=== PATIENT | female | born 1965 | race Caucasian/White ===

== ENCOUNTER 2017-04-23 12:25 | Emergency (ER) | payer MEDICAID ==
[~2017-04-23] VITALS: Ht 154.9 cm; Wt 59.0 kg
[~2017-04-23 12:25] MED LIST: ALBU6.7H INH; ALPR-339 PO; CARI350T PO; LEVO112T7 PO; LIP40 PO; OMEP40CA34 PO; TIOT18CA3 INH
[2017-04-23 13:44] LABS: CLARITY URINE CLEAR (CLEAR); COLOR URINE YELLOW (YELLOW); KETONES URINE NEGATIVE (NEGATIVE); LEUKOCYTE ESTERASE URINE NEGATIVE (NEGATIVE); NITRITE URINE NEGATIVE (NEGATIVE); OCCULT BLOOD URINE NEGATIVE (NEGATIVE); PROTEIN URINE NEGATIVE (NEGATIVE); SPECIFIC GRAVITY URINE 1.006 (1.005-1.030); UROBILINOGEN URINE 0.2 E.U./dL (0.2-1.0)
[2017-04-23] MEDS ORDERED: SODIUM CHLORIDE 0.9% 1,000 ML IV ONE (15:30)
[2017-04-23] MEDS ORDERED: ONDANSETRON HCL 4MG/2ML VIAL IV STA (15:30)
[2017-04-23] MEDS ORDERED: KETOROLAC 30MG/ML VIAL IV STA (15:30)
[2017-04-23 16:07] LABS: BASOPHILS % 0.7 % (0.0-2.0); EOSINOPHILS % 3.4 % (0.0-5.0); HEMOGLOBIN. 12.2 g/dL (12.0-16.0); LYMPHOCYTES % 37.4 % (20.0-50.0); MEAN CORPUSCULAR VOLUME 88.6 fL (81.0-99.0); MEAN PLATELET VOLUME 7.5 fl (7.4-10.4); MONOCYTES % 5.8 % (2.0-8.0); NEUTROPHILS % 52.7 % (40.0-76.0); PLATELET 298 x1000/uL (130-400); RED BLOOD CELL COUNT 4.06 mill/uL (4.2-5.4)
[2017-04-23 16:14] LABS: PROTHROMBIN TIME 10.1 sec (9.4-11.6)
[2017-04-23 16:16] LABS: CHLORIDE 109 mEq/L (98-107)
[2017-04-23 16:17] LABS: CARBON DIOXIDE 27 mEq/L (21-32)
[2017-04-23] MEDS ORDERED: ACETAMINOPHEN WITH CODEINE 300/30MG TABLET PO ONE (17:30)
[2017-04-23 18:40] VITALS: BP 125/76
== END 2017-04-23 18:45 | disposition home or self-care (01) ==
LOC: ER 12:25
DX: R10.33 Periumbilical pain (principal); R11.0 Nausea; F17.200 Nicotine dependence, unspecified, uncomplicated; J45.909 Unspecified asthma, uncomplicated; E78.00 Pure hypercholesterolemia, unspecified; E03.9 Hypothyroidism, unspecified; Z98.890 Other specified postprocedural states; Z91.013 Allergy to seafood
CPT/HCPCS: 36415; 74176; 80053; 81003; 81025; 85025; 85610; 96361; 96374; 96375; 99285; J1885; J2405; J7030

== ENCOUNTER 2017-09-10 17:05 | Emergency (ER) | payer MEDICAID, OTHER ==
[~2017-09-10] VITALS: Ht 154.9 cm; Wt 64.7 kg
[2017-09-10] MEDS ORDERED: KETOROLAC 30MG/ML VIAL IV STA (23:00)
[2017-09-10] MEDS ORDERED: SODIUM CHLORIDE 0.9% 1,000 ML IV ONE (23:00)
[2017-09-10] MEDS ORDERED: ONDANSETRON HCL 4MG/2ML VIAL IV STA (23:00)
[2017-09-10 23:30] LABS: BASOPHILS % 0.7 % (0.0-2.0); EOSINOPHILS % 2.9 % (0.0-5.0); HEMATOCRIT. 38.4 % (36.0-48.0); HEMOGLOBIN. 12.6 g/dL (12.0-16.0); LYMPHOCYTES % 50.1 % (20.0-50.0); MEAN CORPUSCULAR HEMOGLOBIN 29.6 pg (28.0-32.0); MEAN CORPUSCULAR VOLUME 89.7 fL (81.0-99.0); MEAN PLATELET VOLUME 7.6 fl (7.4-10.4); MONOCYTES % 8.3 % (2.0-8.0); PLATELET 398 x1000/uL (130-400); RED BLOOD CELL COUNT 4.27 mill/uL (4.2-5.4); RED CELL DISTRIBUTION WIDTH 12.9 % (11.6-14.6)
[2017-09-10 23:34] LABS: CHLORIDE 105 mEq/L (98-107)
[2017-09-10 23:37] LABS: CLARITY URINE CLEAR (CLEAR); COLOR URINE YELLOW (YELLOW); KETONES URINE NEGATIVE (NEGATIVE); LEUKOCYTE ESTERASE URINE 2+ (NEGATIVE); NITRITE URINE NEGATIVE (NEGATIVE); OCCULT BLOOD URINE NEGATIVE (NEGATIVE); PH URINE 6.5 (4.5-8.0); PROTEIN URINE NEGATIVE (NEGATIVE); SPECIFIC GRAVITY URINE 1.011 (1.005-1.030); UROBILINOGEN URINE 0.2 E.U./dL (0.2-1.0)
[2017-09-11] MEDS ORDERED: MORPHINE SULFATE 4 MG/ML CPJ (NOT FOR IM USE) IV ONE (01:30)
[2017-09-11] MEDS ORDERED: ONDANSETRON HCL 4MG/2ML VIAL IV ONE (01:30)
[2017-09-11 03:05] VITALS: BP 141/80
== END 2017-09-11 03:06 | disposition home or self-care (01) ==
LOC: ER 17:35
DX: N39.0 Urinary tract infection, site not specified (principal); N20.0 Calculus of kidney; R22.2 Localized swelling, mass and lump, trunk; J45.909 Unspecified asthma, uncomplicated; E78.00 Pure hypercholesterolemia, unspecified; E03.9 Hypothyroidism, unspecified; F17.200 Nicotine dependence, unspecified, uncomplicated; Z91.013 Allergy to seafood; Z91.041 Radiographic dye allergy status
CPT/HCPCS: 36415; 74176; 80053; 81003; 81025; 83690; 85025; 96361; 96374; 96375; 96376; 99285; J1885; J2270; J2405; J7030; Z7610

== ENCOUNTER 2020-07-19 04:05 | Emergency (ER) | payer OTHER ==
[~2020-07-19] VITALS: Ht 167.6 cm; Wt 63.0 kg
[~2020-07-19 04:05] MED LIST changes: -ALBU6.7H INH; +ALBU6.7H11 INH; -CARI350T PO; +CARI350T28 PO; +OMEP40CA12 PO; -OMEP40CA34 PO
[2020-07-19] MEDS ORDERED: CYCLOBENZAPRINE 10MG TABLET PO ONE (04:45)
[2020-07-19] MEDS ORDERED: IBUP-2028 MT ×2 (04:53)
[2020-07-19] MEDS ORDERED: LORAZEPAM 1MG TABLET PO ONE (06:45)
[2020-07-19 08:17] VITALS: BP 135/85
[2020-07-19 09:06] LABS: BASOPHILS % 0.9 % (0.0-2.0); EOSINOPHILS % 5.9 % (0.0-5.0); HEMOGLOBIN. 11.2 g/dL (12.0-16.0); LYMPHOCYTES % 43.7 % (20.0-50.0); MEAN CORPUSCULAR HEMOGLOBIN 29.4 pg (28.0-32.0); MEAN CORPUSCULAR VOLUME 89.2 fL (81.0-99.0); MONOCYTES % 9.1 % (2.0-8.0); NEUTROPHILS % 40.4 % (40.0-76.0); PLATELET 272 x1000/uL (130-400); RED BLOOD CELL COUNT 3.81 mill/uL (4.2-5.4); RED CELL DISTRIBUTION WIDTH 15.2 % (11.6-14.6)
[2020-07-19 09:10] LABS: CLARITY URINE CLEAR (CLEAR); COLOR URINE YELLOW (YELLOW); KETONES URINE NEGATIVE (NEGATIVE); LEUKOCYTE ESTERASE URINE NEGATIVE (NEGATIVE); NITRITE URINE NEGATIVE (NEGATIVE); OCCULT BLOOD URINE NEGATIVE (NEGATIVE); PROTEIN URINE NEGATIVE (NEGATIVE); SPECIFIC GRAVITY URINE 1.004 (1.005-1.030); UROBILINOGEN URINE 0.2 E.U./dL (0.2-1.0)
[2020-07-19 09:10] LABS: CHLORIDE 113 mEq/L (98-107)
[2020-07-19] MEDS ORDERED: CLON0.5T MT (09:36)
== END 2020-07-19 10:05 | disposition home or self-care (01) ==
LOC: ER 04:05
DX: F95.9 Tic disorder, unspecified (principal); F41.9 Anxiety disorder, unspecified; E78.00 Pure hypercholesterolemia, unspecified; J45.909 Unspecified asthma, uncomplicated; I51.9 Heart disease, unspecified; E03.9 Hypothyroidism, unspecified; R51.9 Headache, unspecified; Z91.013 Allergy to seafood; Z91.041 Radiographic dye allergy status; Z79.899 Other long term (current) drug therapy; Z90.49 Acquired absence of other specified parts of digestive tract
CPT/HCPCS: 36415; 80053; 81003; 81025; 85025; 99284